=== PATIENT | female | born 1995 | race Caucasian/White ===

== ENCOUNTER 2018-10-12 20:18 | Outpatient (CLI) | payer SELFPAY | END 2018-10-12 21:42 | disposition home or self-care (01) | LOC: TRG 20:18 | PROVIDERS: ATTEND Obstetrics & Gynecology | DX: O47.03 False labor before 37 completed weeks of gestation, third trimester (principal); Z3A.37 37 weeks gestation of pregnancy | CPT/HCPCS: 59025 ==

== ENCOUNTER 2018-10-13 08:13 | Inpatient (IN) | payer OTHER ==
[2018-10-13] MEDS ORDERED: LACTATED RINGERS 1,000 ML ONE (09:12)
[2018-10-13 11:43] LABS: Hematocrit 31.5 % (30.3-42.9); Mean Corpuscular HGB Conc 35 % (30-34); Mean Corpuscular Volume 83 fl (79-97); Platelet Count 207 K/mm3 (140-440); Red Blood Count 3.78 M/mm3 (3.65-5.03); Red Cell Distribution Width 14.7 % (13.2-15.2)
[2018-10-13] MEDS ORDERED: CERVIDIL VG ONE (12:00)
[2018-10-13] MEDS ORDERED: AMPICILLIN/NS 2 GM/100 ML 2 GM/100 ML BAG IV ONE (19:30)
[2018-10-13] MEDS ORDERED: XYLOCAINE 2% INFILTRATI ONE (19:30)
[2018-10-13] MEDS ORDERED: BRETHINE SUB-Q PRN (19:30)
[2018-10-13] MEDS ORDERED: SUBLIMAZE IV PRN (19:30)
--- NOTE | 2018-10-13 19:51 | History and Physical Report ---
History of Present Illness Date of examination: 10/13/18 Date of admission: 10/13/18 08:13 Chief complaint: Admitted this morning for induction of labor. History of present illness: 23 year old presented this morning for scheduled induction of labor due to PIH. Assumed care of patient at 17:00. Patient received care at [facility]. LMP 01/13/18. EDC 10/27/18. significant for the following: excessive weight gain, UTI (treated with Macrobid), intermittently elevated blood pressure, anemia (supplemented with iron). labs are as follows: O+, antibody screen negative, rubella immune, pap smear normal, RPR nonreactive, hepatitis B surface antigen negative, HIV negative, chlamydia negative, gonorrhea negative, quad screen negative, diabetes screen 106, urine culture negative, no GBS test result on chart. Past History Past Medical History: no pertinent history Past Surgical History: no surgical history CONTINUOUS CH[employer] History: denies: abnormal PAP smear, chlamydia, gonorrhea, hepatitis B, hepatitis C, herpes, HIV, syphilis, trichomonas Family/Genetic History: diabetes, hypertension Social history: lives with family, full code. denies: smoking, alcohol abuse, prescription drug abuse, IV drug use - Obstetrical History Expected Date of Delivery: 10/27/18 Actual Gestation: 38 Week(s) 0 Day(s) : 1 Para: 0 Hx # Term Pregnancies: 0 Number of Pregnancies: 0 Spontaneous Abortions: 0 Induced : 0 Number of Living Children: 0 Medications and Allergies Allergies Allergy/AdvReac Type Severity Reaction Status Date / Time No Known Allergies Allergy Verified 10/13/18 09:35 Active Meds: Active Medications Ephedrine Sulfate (Ephedrine Sulfate) 10 mg IV Q2M PRN PRN Reason: Hypotension Fentanyl (Sublimaze) 100 mcg IV Q2H PRN PRN Reason: Labor Pain Lactated Ringer's (Lactated Ringers) 1,000 mls @ 125 mls/hr IV DIRECT SUNDAY Oxytocin/Sodium Chloride (Pitocin/Ns 20 Unit/1000ml Drip) 20 units in 1,000 mls @ 125 mls/hr IV DIRECT SUNDAY Lactated Ringer's (Lactated Ringers) 1,000 mls @ 125 mls/hr IV DIRECT SUNDAY Ampicillin Sodium (Ampicillin/Ns 2 Gm/100 Ml) 2 gm in 100 mls @ 100 mls/hr IV ONCE ONE; Protocol Stop: 10/13/18 20:29 Ampicillin Sodium (Ampicillin/Ns 1 Gm/50 Ml) 1 gm in 50 mls @ 100 mls/hr IV Q4HR SUNDAY; Protocol Terbutaline Sulfate (Brethine) 0.25 mg SUB-Q ONCE PRN PRN Reason: Hyperstimulation/Hypertonicity Review of Systems Eyes: no blurred vision, no loss of vision Cardiovascular: leg edema, no shortness of breath Respiratory: no shortness of breath Gastrointestinal: no nausea, no vomiting Genitourinary: no vaginal bleeding - Vital Signs Vital signs: Vital Signs Pulse BP 93 H 137/90 10/13/18 08:26 10/13/18 08:26 Temp Pulse Resp BP Pulse Ox 64 137/76 10/13/18 19:25 10/13/18 19:25 2+ reflexes bilaterally - Physical Exam Abdomen: Positive: normal appearance, soft. Negative: distention, tenderness, guarding, rigidity Genitourinary (Female): Positive: normal external genitalia, normal perenium. Negative: perineal/vulvar lesions (no lesions seen on careful exam with bright light upon admission) Vagina: Positive: normal moisture Uterus: Positive: enlarged. Negative: tender Anus/Rectum: Positive: normal perianal skin Extremities: Positive: edema (mild dependent edema bilaterally) - Obstetrical FHR: category 1 Uterine Contraction Monitor Mode: External Cervical Dilatation: 2 Cervical Effacement Percentage: 80 station: -2 Uterine Contraction Pattern: Irregular Uterine Contraction Intensity: Mild Results Result Diagrams: 10/13/18 09:40 Abnormal lab results 10/13/18 Range/Units 09:40 MCHC 35 H (30-34) % All other labs normal. Assessment and Plan A: at 38 weeks gestation. PIH. GBS unknown. P: Admit. Continuous EFM. GBS prophylaxis. Preeclamptic labs. Cervidil cervical ripening and Pitocin induction of labor. Discussed with patient risks and benefits of Cervidil cervical ripening and Pitocin induction of labor. Patient consented to Cervidil cervical ripening and Pitocin induction of labor.
[2018-10-13] MEDS ORDERED: LACTATED RINGERS 1,000 ML IV SCH (20:00)
[2018-10-13] MEDS ORDERED: PITOCin/NS 20 UNIT/1000ML DRIP 20 UNITS/1,000 ML BAG IV SCH (20:00)
[2018-10-13 20:51] LABS: Alanine Aminotransferase 8 units/L (7-56); Albumin 3.4 g/dL (3.9-5); BUN/Creatinine Ratio 7; Blood Urea Nitrogen 4 mg/dL (7-17); Hemolysis Index 0; Uric Acid 3.4 mg/dL (3.5-7.6)
[2018-10-13] MEDS ORDERED: AMPICILLIN/NS 1 GM/50 ML 1 GM/50 ML BAG IV SCH (23:35)
[2018-10-14] MEDS ORDERED: PITOCin/NS 30 UNIT/500ML 30 UNITS/500 ML BAG IV SCH ×2 (02:00→12:00)
[2018-10-14] MEDS: LACTATED RINGERS 1,000 ML IV SCH ×2 (02:52→12:21)
[2018-10-14] MEDS ORDERED: AMPICILLIN/NS 2 GM/100 ML 2 GM/100 ML BAG IV ONE (05:56)
--- NOTE | 2018-10-14 08:37 | Progress Note ---
Assessment and Plan A: at 38 weeks, 1 day gestation. PIH. P: Continue induction of labor. Plan to insert Cervidil around 9:00 AM. Continuous EFM. Subjective - Subjective Date of service: 10/14/18 Principal diagnosis: at 38 1/7 weeks gestation Interval history: at 38 1/7 weeks gestation. Induction of labor for PIH. Patient received low dose Pitocin last night. Patient denies vaginal bleeding or leaking of fluid. Patient reports active movement. Patient reports: movement normal, no new complaints, no loss of fluid, no vaginal bleeding, no contractions Objective - Vital Signs Vital Signs: Vital Signs - 12hr 10/13/18 10/13/18 10/14/18 21:26 22:26 00:25 Pulse Rate 71 70 77 Respiratory Rate Blood Pressure 141/75 119/55 119/83 10/14/18 10/14/18 10/14/18 03:25 04:26 05:26 Pulse Rate 73 81 75 Respiratory Rate Blood Pressure 125/60 136/78 125/68 10/14/18 10/14/18 10/14/18 06:27 07:15 07:26 Pulse Rate 73 79 Respiratory 16 Rate Blood Pressure 139/78 106/58 10/14/18 08:25 Pulse Rate 84 Respiratory Rate Blood Pressure 124/74 - Exam Abdomen: Present: normal appearance, soft. Absent: distention, tenderness, guarding, rigidity FHR: category 1 Uterine Contraction Monitor Mode: External Uterine Contraction Pattern: Absent Extremities: normal, edema (mild dependent edema) - Labs Labs: Abnormal Labs 10/13/18 10/13/18 09:40 19:48 MCHC 35 H Potassium 3.3 L Chloride 107.9 H Carbon Dioxide 21 L BUN 4 L Creatinine 0.6 L Glucose 110 H Uric Acid 3.4 L Alkaline Phosphatase 170 H Albumin 3.4 L Laboratory Results - last 24 hr 10/13/18 10/13/18 10/13/18 09:40 09:40 09:40 WBC 10.1 RBC 3.78 Hgb 11.0 Hct 31.5 MCV 83 MCH 29 MCHC 35 H RDW 14.7 Plt Count 207 Sodium Potassium Chloride Carbon Dioxide Anion Gap BUN Creatinine Estimated GFR BUN/Creatinine Ratio Glucose Uric Acid Calcium Total Bilirubin AST ALT Alkaline Phosphatase Lactate Dehydrogenase Total Protein Albumin Albumin/Globulin Ratio RPR Nonreactive Blood Type O POSITIVE Antibody Screen Negative 10/13/18 19:48 WBC RBC Hgb Hct MCV MCH MCHC RDW Plt Count Sodium 141 Potassium 3.3 L Chloride 107.9 H Carbon Dioxide 21 L Anion Gap 15 BUN 4 L Creatinine 0.6 L Estimated GFR > 60 BUN/Creatinine Ratio 7 Glucose 110 H Uric Acid 3.4 L Calcium 9.0 Total Bilirubin 0.20 AST 11 ALT 8 Alkaline Phosphatase 170 H Lactate Dehydrogenase 150 Total Protein 6.6 Albumin 3.4 L Albumin/Globulin Ratio 1.1 RPR Blood Type Antibody Screen
[2018-10-14] MEDS ORDERED: CERVIDIL VG ONE ×2 (09:00→23:59)
--- NOTE | 2018-10-14 11:07 | Event Note ---
Date: 10/14/18 Patient started to feel contractions again prior to planned time for Cervidil placement. SVE /-1/BBOW. Will start Pitocin. Discontinued order for Cervidil. Discussed this plan with patient. Category 1 heart rate tracing.
--- NOTE | 2018-10-14 23:23 | Event Note ---
Date: 10/14/18 Cervidil 10 mg was placed in posterior fornix of vagina. Category 1 heart rate tracing.
--- NOTE | 2018-10-15 10:33 | Progress Note ---
Assessment and Plan A: at 38 weeks, 2 days gestation. Induction of labor. induced hypertension. P: Cervidil removed from vagina at 09:30. Plan to start Pitocin around 11:30. Continuous EFM. Subjective - Subjective Date of service: 10/15/18 Principal diagnosis: at 38 2/7 weeks gestation Interval history: at 38 2/7 weeks gestation. Induction of labor for PIH. Patient received Cervidil last night. Patient denies vaginal bleeding or leaking of fluid. Patient reports active movement. Patient reports: movement normal, no new complaints, no loss of fluid, no vaginal bleeding, no contractions Objective - Vital Signs Vital Signs: Vital Signs - 12hr 10/15/18 10/15/18 10/15/18 03:55 04:25 05:25 Pulse Rate 76 81 83 Blood Pressure 126/77 134/81 119/67 10/15/18 10/15/18 10/15/18 06:25 07:25 08:25 Pulse Rate 77 78 68 Blood Pressure 126/61 128/66 124/79 10/15/18 09:27 Pulse Rate 85 Blood Pressure 125/76 - Exam Abdomen: Present: normal appearance, soft. Absent: distention, tenderness, guarding, rigidity Uterus: Present: normal, fundal height above umbilicus. Absent: tenderness FHR: category 1 Uterine Contraction Monitor Mode: External Cervical Dilatation: 3.5 Cervical Effacement Percentage: 90 station: -2 Uterine Contraction Pattern: Irregular Uterine Contraction Intensity: Mild Extremities: normal - Labs Labs: Abnormal Labs 10/13/18 10/13/18 09:40 19:48 MCHC 35 H Potassium 3.3 L Chloride 107.9 H Carbon Dioxide 21 L BUN 4 L Creatinine 0.6 L Glucose 110 H Uric Acid 3.4 L Alkaline Phosphatase 170 H Albumin 3.4 L
[2018-10-15] MEDS ORDERED: PITOCin/NS 30 UNIT/500ML 30 UNITS/500 ML BAG IV SCH ×2 (11:34→12:00)
[2018-10-15] MEDS: LACTATED RINGERS 1,000 ML IV SCH ×2 (12:36→20:04)
--- NOTE | 2018-10-15 17:50 | Event Note ---
Date: 10/15/18 Several variable FHR decelerations noted; IUPC inserted without difficulty so that amnioinfusion can be administered. Amnioinfusion ordered and nurse notified to start the amnioinfusion as soon as possible. Oxygen per face mask at 10 LPM. Patient positioned in lateral position. Normal FHR baseline and moderate variability. Contractions every 3 minutes; uterus palpates soft between contractions. Cervix is 5/100/-1.
[2018-10-15] MEDS ORDERED: NACL 0.9% 1000 ML 1,000 ML VG SCH (18:00)
[2018-10-15] MEDS ORDERED: NARCAN 2 MG/2 ML IV PRN (19:28)
--- NOTE | 2018-10-15 19:31 | Anesthesia Consultation ---
Anesthesia Consult and Med Hx Date of service: 10/15/18 - Airway Anesthetic Teeth Evaluation: Good ROM Head & Neck: Adequate Mental/Hyoid Distance: Adequate Mallampati Class: Class II Intubation Access Assessment: Good - Pulmonary Exam CTA: Yes - Cardiac Exam Cardiac Exam: RRR - Pre-Operative Health Status ASA Pre-Surgery Classification: ASA2, Emergency Proposed Anesthetic Plan: Epidural - Pulmonary Hx Asthma: No COPD: No Hx Pneumonia: No - Cardiovascular System Hx Hypertension: No (PIH) - Central Nervous System Hx Seizures: No Hx Psychiatric Problems: No - Endocrine Hx Renal Disease: No Hx End Stage Renal Disease: No Hx Hypothyroidism: No Hx Hyperthyroidism: No - Hematic Hx Anemia: No Hx Sickle Cell Disease: No - Other Systems Hx Alcohol Use: No
[2018-10-15] MEDS ORDERED: MARCAINE 0.25% INFILTRATI ONE (19:46)
[2018-10-15] MEDS ORDERED: fentaNYL-BUPIV 2 MCG/ML-0.125% 200 MCG/100 ML BAG EPIDURAL SCH (20:00)
[2018-10-15] MEDS ORDERED: ZOFRAN IV ONE (20:00)
[2018-10-15 20:54] LABS: Hematocrit 32.3 % (30.3-42.9); Hemoglobin 11.1 gm/dl (10.1-14.3); Mean Corpuscular HGB Conc 34 % (30-34); Mean Corpuscular Volume 82 fl (79-97); Platelet Count 190 K/mm3 (140-440); Red Blood Count 3.92 M/mm3 (3.65-5.03); Red Cell Distribution Width 14.4 % (13.2-15.2)
--- NOTE | 2018-10-15 22:21 | Event Note ---
Date: 10/15/18 Patient is receiving amnioinfusion and variable FHR decelerations have resolved. Normal FHR baseline and moderate variability. Patient is in left lateral position. SVE 6/100/-2. Clear fluid. Temp. 98.7. WBC 16,000. No maternal or tachycardia. No uterine tenderness. No foul smelling discharge. Ampicillin started. Consulted with Dr. Arellano re: WBC count and interventions taken.
[2018-10-15] MEDS ORDERED: GENTAMICIN 100 MG in NACL 0.9% 100 ML IV SCH (23:30)
[2018-10-15 23:39] LABS: Alanine Aminotransferase 9 units/L (7-56); Albumin 3.3 g/dL (3.9-5); BUN/Creatinine Ratio 10; Blood Urea Nitrogen 3 mg/dL (7-17); Calcium 9.2 mg/dL (8.4-10.2); Hemolysis Index 2
--- NOTE | 2018-10-15 23:43 | Event Note ---
Date: 10/15/18 Temp is now 99.1 and patient complains of slight chills. Patient is receiving Ampicillin; Gentamicin also ordered and nurse notified. No tachycardia and no maternal tachycardia. Consulted with Dr. Arellano regarding chills, temperature, and interventions taken. Dr. Arellano states it is OK to continue to labor as long as baby is stable.
[2018-10-16] MEDS ORDERED: GENTAMICIN/NS 100 MG/100 ML 100 MG/100 ML BAG IV SCH
[2018-10-16] MEDS ORDERED: AMPICILLIN/NS 1 GM/50 ML 1 GM/50 ML BAG IV SCH (01:50)
[2018-10-16] MEDS ORDERED: XYLOCAINE 2% INFILTRATI ONE (02:46)
[2018-10-16] MEDS ORDERED: LANSINOH TP PRN (03:41)
[2018-10-16] MEDS ORDERED: MILK OF MAGNESIA PO PRN (03:41)
[2018-10-16] MEDS ORDERED: TYLENOL PO PRN (03:41)
[2018-10-16] MEDS ORDERED: TUCKS PAD TP PRN (03:41)
[2018-10-16] MEDS ORDERED: DULCOLAX PR PRN (03:41)
--- NOTE | 2018-10-16 03:54 | Procedure Note ---
OB Delivery Note - Delivery Date of Delivery: 10/16/18 Surgeon: AILEEN CARABALLO Estimated blood loss: 300cc - Vaginal Intrapartum events: mult.variable deceleratio Delivery induction: cervidil Delivery monitor: external FHT, external uterine Route of delivery: Delivery placenta: spontaneous Delivery cord: 3 umbilical vessels Episiotomy: mediolateral Delivery laceration: 3rd degree Delivery repair: vicryl Anesthesia: epidural Delivery comments: Spontaneous vaginal delivery at 02:45 of liveborn male weighing 6 lb. 9 oz. over 2nd degree mediolateral episiotomy with 3rd degree extension with apgars of 8/9. Epidural anesthesia. Body cord reduced manually at delivery. Baby placed immediately skin to skin with mom after delivery. Spontaneous cry and respirations. Baby bulb suctioned and dried. 3 vessel cord double clamped and cut after cessation of pulsation. Cord blood obtained. Spontaneous delivery of intact placenta and membranes. EBL 300 cc. Pitocin to IV fluids after delivery of placenta. Fundus firm and midline. Partial 3rd degree extension of episiotomy noted. Dr. Arellano called to delivery room to suture 3rd degree extension of episiotomy. Mother and baby stable in birthing room.
[2018-10-16] MEDS ORDERED: SODIUM CHLORIDE FLUSH SYRINGE 10 ML IV NR (04:00)
[2018-10-16] MEDS ORDERED: AMPICILLIN/NS 2 GM/100 ML 2 GM/100 ML BAG IV SCH (04:45)
--- NOTE | 2018-10-16 05:55 | Event Note ---
Date: 10/16/18 I was called by the practice specialist Tri to assist in repairing a 3-rd degree perineal laceration. The patient delivered a live baby and had an episiotomy which extended to a 3rd degree. The external sphincter was repaired in 2 layers and the vaginal mucosa was then repaired with good hemostasis. The patient tolerated the procedure well.
[2018-10-16] MEDS ORDERED: DERMOPLAST TP PRN (05:56)
--- NOTE | 2018-10-16 06:56 | Post Anesthesia Evaluation ---
- Post Anesthesia Evaluation Patient Participated: Yes Airway Patent: Yes Stable Respiratory Function: Yes Nausea/Vomiting: No Temp > 96.8F: Yes Pain Manageable: Yes Adequeate Hydration: Yes Anesthesia Complications: No Block Receding Appropriately: Yes Patient on Ventilator: No
[2018-10-16] MEDS: FEOSOL PO SCH ×2 (09:50→21:37)
[2018-10-16] MEDS: COLACE PO SCH ×2 (09:50→21:37)
[2018-10-16] MEDS: IBUPROFEN PO SCH ×2 (11:44→17:36)
[2018-10-16 16:36] LABS: Hematocrit 25.8 % (30.3-42.9); Hemoglobin 8.7 gm/dl (10.1-14.3)
[2018-10-16] MEDS: NORCO 5/325 PO PRN (21:37)
[2018-10-17] MEDS: IBUPROFEN PO SCH ×4 (04:25→23:12)
[2018-10-17] MEDS ORDERED: BOOSTRIX IM ONE (06:00)
--- NOTE | 2018-10-17 10:16 | Progress Note ---
Assessment and Plan - Patient Problems (1) (normal spontaneous vaginal delivery) Current Visit: Yes Status: Acute Plan to address problem: Continue routine PP orders Anticipate d/c home tomorrow (2) Anemia Current Visit: Yes Status: Acute Qualifiers: Anemia type: other cause Other causes of anemia: acute posthemorrhagic Qualified Code(s): D62 - Acute posthemorrhagic anemia Plan to address problem: Continue daily oral iron supplementation as ordered Increase iron rich food intake Subjective - Subjective Date of service: 10/17/18 Principal diagnosis: PPD#1; Anemia Interval history: See admission H & P; OB vaginal delivery summary Patient reports: appetite normal, voiding normally, pain well controlled, flatus, ambulating normally Coffey: doing well, bottle feeding (and ) Objective - Vital Signs Latest vital signs: Vital Signs Temp Pulse Resp BP BP Pulse Ox 10/17/18 08:22 98.4 F 86 18 122/76 98 10/16/18 23:22 98.8 F 105 H 20 123/67 98 10/16/18 15:40 98.5 F 90 20 112/56 10/16/18 13:49 98 F 91 H 20 117/71 Intake and Output 10/16/18 10/17/18 10/17/18 23:59 07:59 15:59 Intake Total 240 Output Total 350 Balance -350 240 Intake: Intake, Free Water 240 Output: Urine 350 Void 350 Other: Total, Output Amount 350 # Voids Void 3 - Exam Breasts: Present: normal Cardiovascular: Present: Regular rate Lungs: Present: Normal air movement Abdomen: Present: soft, normal bowel sounds Uterus: Present: firm, fundal height below umbilicus (U-1) Extremities: Present: normal Deep Tendon Reflex Grade: Normal +2 - Labs Labs: Abnormal lab results 10/16/18 Range/Units 15:55 Hgb 8.7 L (10.1-14.3) gm/dl Hct 25.8 L D (30.3-42.9) %
--- NOTE | 2018-10-17 10:20 | Discharge Summary ---
Providers - Providers Date of Admission: 10/13/18 08:13 Date of discharge: 10/18/18 (1200) Attending physician: MARY FERREIRA MD Primary care physician: MARY FERREIRA MD Hospitalization Reason for admission: induction of labor Delivery: Episiotomy: mediolateral Laceration: 3rd degree (extension from episiotomy.), other (Healing as expected, no signs of infection noted) Other procedures: none complications: none Discharge diagnosis: IUP at term delivered, other (Anemia) Devol baby: male Condition at discharge: Stable Disposition: DC-01 TO HOME OR SELFCARE - Discharge Diagnoses (1) (normal spontaneous vaginal delivery) Status: Acute (2) Anemia Status: Acute Qualifiers: Anemia type: other cause Other causes of anemia: acute posthemorrhagic Qualified Code(s): D62 - Acute posthemorrhagic anemia Plan - Provider Discharge Summary Activity: routine, no sex for 6 weeks, no heavy lifting 4 weeks, no strenuous exercise Diet: other (Increase iron rich food intake) Instructions: routine Additional instructions: [] Smoking cessation referral if applicable(refer to patient education folder for contact #) [] Refer to [facility] Book[facility] Call your doctor immediately for: * Fever > 100.5 * Heavy vaginal bleeding ( >1 pad per hour) * Severe persistent headache * Shortness of breath * Reddened, hot, painful area to leg or breast * Drainage or odor from incision. * Keep incision clean and dry at all times and follow doctor's instructions regarding bathing/showering * Continue daily oral iron supplementation as ordered - Follow up plan Follow up: MARY FERREIRA MD [Primary Care Provider] - 6 Weeks
[2018-10-17] MEDS: FEOSOL PO SCH ×2 (11:23→21:59)
[2018-10-17] MEDS: COLACE PO SCH ×2 (11:23→21:59)
[2018-10-17] MEDS: NORCO 5/325 PO PRN (18:16)
[2018-10-18] MEDS: IBUPROFEN PO SCH ×2 (05:07→17:05)
[2018-10-18] MEDS: FEOSOL PO SCH (09:49)
[2018-10-18] MEDS: COLACE PO SCH (09:49)
[2018-10-18] MEDS: NORCO 5/325 PO PRN ×2 (10:33→17:03)
[2018-10-18 17:00] VITALS: BP 120/71
== END 2018-10-18 17:09 | disposition home or self-care (01) | DRG 768 ==
LOC: LD 08:13 → OB 10-16 06:30
PROVIDERS: ADMIT Obstetrics & Gynecology; ATTEND Obstetrics & Gynecology
PROC: 10E0XZZ Delivery of Products of Conception, External Approach (ICD-10-PCS; principal; 2018-10-16)
PROC: 0DQR0ZZ Repair Anal Sphincter, Open Approach (ICD-10-PCS; 2018-10-16)
PROC: 0W8NXZZ Division of Female Perineum, External Approach (ICD-10-PCS; 2018-10-16)
PROC: 10H07YZ Insertion of Other Device into Products of Conception, Via Natural or Artificial Opening (ICD-10-PCS; 2018-10-16)
PROC: 3E0P7VZ Introduction of Hormone into Female Reproductive, Via Natural or Artificial Opening (ICD-10-PCS; 2018-10-16)
PROC: 3E0R3BZ Introduction of Anesthetic Agent into Spinal Canal, Percutaneous Approach (ICD-10-PCS; 2018-10-16)
PROC: 00HU33Z Insertion of Infusion Device into Spinal Canal, Percutaneous Approach (ICD-10-PCS; 2018-10-16)
DX: O76 Abnormality in fetal heart rate and rhythm complicating labor and delivery (principal); Z37.0 Single live birth; D62 Acute posthemorrhagic anemia; O70.20 Third degree perineal laceration during delivery, unspecified; O13.4 Gestational [pregnancy-induced] hypertension without significant proteinuria, complicating childbirth; O99.02 Anemia complicating childbirth; Z3A.38 38 weeks gestation of pregnancy; Z83.3 Family history of diabetes mellitus; Z82.49 Family history of ischemic heart disease and other diseases of the circulatory system
CPT/HCPCS: 36415; 59200; 80053; 83615; 84550; 85014; 85018; 85027; 86592; 86850; 86900; 86901; 88307; 90715; G0378; J0290; J1580; J2405; J2590; J3010; J7030; J7120